=== PATIENT | male | born 1945 | race Caucasian/White ===

== ENCOUNTER 2019-04-11 05:28 | Inpatient (IN) ==
[2019-04-09 14:50] LABS: Basophils # 0.1 10*3/uL (0.0-0.2); Basophils % 0.9 % (0.0-0.8); Eosinophils # 0.3 10*3/uL (0.0-0.87); Eosinophils % 2.2 % (0.00-10.9); Hematocrit 42.2 VOL% (42.0-52.0); Hemoglobin 14.1 GM/DL (14.0-18.0); Immature Granulocytes % 0.7 %; Immature Granulocytes Absolute 0.08 #; Mean Corpuscular HGB Conc 33.4 GM/DL (32-36); Monocytes % 4.7 % (1.7-12.7); Neutrophils % 65.5 % (38.7-73.9); Platelet Count 409 T/CUMM (130-400); Red Blood Count 4.18 MC/CUMM (3.8-5.5); White Blood Count 11.3 T/CUMM (4-12)
[2019-04-09 14:57] LABS: Apearance,Urine CLEAR (Clear); Bacteria,Urine Occasional /HPF (Few); Bilirubin,Urine Negative (Negative); Blood, Urine Negative (Negative); Glucose,Urine (UA) Negative (Negative); Ketones,Urine Negative (Negative); Mucus,Urine Occasional /LPF (Occasional); Nitrite,Urine Negative (Negative); Protein,Urine Negative; RBC,Urine 2 /HPF (0-4); Urine Color Yellow (Yellow); Urine Specific Gravity 1.026 (1.001-1.035); WBC,Urine <1 /HPF (0-6)
[2019-04-09 15:27] LABS: Calcium 8.9 MG/DL (8.5-10.1); Osmolality,Calculated 287.3 MOS/KG (273-304)
[2019-04-11] MEDS ORDERED: ceFAZolin 2,000 MG in PREMIX 1 EACH IV ONE (06:00)
[2019-04-11] MEDS ORDERED: DIAZEPAM 5 MG TABLET PO ONE (06:54)
[2019-04-11] MEDS ORDERED: FAMOTIDINE 20 MG TABLET PO ONE (06:54)
[2019-04-11] MEDS ORDERED: LACTATED RINGERS 1,000 ML IV SCH (07:00)
[2019-04-11] MEDS ORDERED: BUPIVACAINE MPF 0.5% /EPI 30 ML VIAL ONE (07:02)
[2019-04-11] MEDS ORDERED: DEXAMETHASONE 4 MG/1 ML VIAL ONE ×2 (07:02→09:04)
[2019-04-11] MEDS ORDERED: LIDOCAINE 1% 5 ML VIAL ONE (07:02)
[2019-04-11] MEDS ORDERED: BACITRACIN OINT 0.9 GM PACK TOP ONE (08:14)
[2019-04-11] MEDS ORDERED: MIDAZOLAM 2 MG/2 ML VIAL ONE (09:03)
[2019-04-11] MEDS ORDERED: propofoL 200 MG/20 ML VIAL IV ONE (09:03)
[2019-04-11] MEDS ORDERED: LIDOCAINE 2% 5 ML VIAL ONE (09:03)
[2019-04-11] MEDS ORDERED: SEVOFLURANE 1 UNIT/15 MINUTE INH ONE (09:03)
[2019-04-11] MEDS ORDERED: PHENYLEPHRINE 1 MG/10 ML SYRINGE IV ONE (09:04)
[2019-04-11] MEDS ORDERED: ONDANSETRON 4 MG/2 ML VIAL ONE ×2 (09:04)
[2019-04-11] MEDS ORDERED: fentaNYL 100 MCG/2 ML VIAL ONE (09:04)
[2019-04-11] MEDS ORDERED: TUBERCULIN SKIN TEST 0.1 ML SYRINGE INTRADERM ONE (13:55)
[2019-04-11] MEDS ORDERED: ACETAMINOPHEN 325 MG TABLET PO PRN (14:02)
[2019-04-11] MEDS ORDERED: MAGNESIUM HYDROXIDE SUSP 30 ML UDCUP PO PRN (14:02)
[2019-04-11] MEDS ORDERED: ONDANSETRON 4 MG TABLET PO PRN (14:05)
[2019-04-11 15:09] LABS: Basophils # 0.1 10*3/uL (0.0-0.2); Basophils % 0.6 % (0.0-0.8); Hematocrit 41.8 VOL% (42.0-52.0); Hemoglobin 13.9 GM/DL (14.0-18.0); Immature Granulocytes % 0.9 %; Immature Granulocytes Absolute 0.13 #; Lymphocytes % 7.5 % (21.2-54.2); Mean Corpuscular HGB Conc 33.3 GM/DL (32-36); Mean Corpuscular Volume 99.8 FL (87-102); Monocytes % 1.6 % (1.7-12.7); Neutrophils % 89.4 % (38.7-73.9); Platelet Count 420 T/CUMM (130-400); Red Blood Count 4.19 MC/CUMM (3.8-5.5); Red Cell Distribution Width 12.7 % (9.3-17.3); White Blood Count 13.9 T/CUMM (4-12)
[2019-04-11 15:25] LABS: Calcium 8.9 MG/DL (8.5-10.1); Osmolality,Calculated 280.5 MOS/KG (273-304)
[2019-04-11] MEDS ORDERED: cephALEXin 500 MG CAPSULE PO SCH (16:00)
[2019-04-11] MEDS ORDERED: ceFAZolin 2,000 MG in PREMIX 1 EACH IV SCH (16:00)
[2019-04-11] MEDS: cephALEXin 500 MG CAPSULE PO SCH (21:08)
[2019-04-12] MEDS: cephALEXin 500 MG CAPSULE PO SCH (04:47)
[2019-04-12 05:33] LABS: Basophils % 0.2 % (0.0-0.8); Hematocrit 39.7 VOL% (42.0-52.0); Hemoglobin 13.3 GM/DL (14.0-18.0); Immature Granulocytes % 0.8 %; Immature Granulocytes Absolute 0.13 #; Lymphocytes # 2.4 10*3/uL (1.4-4.0); Lymphocytes % 14.5 % (21.2-54.2); Mean Corpuscular HGB Conc 33.5 GM/DL (32-36); Mean Corpuscular Volume 99.5 FL (87-102); Mean Platelet Volume 10.4 FL (9.6-12.0); Monocytes % 5.1 % (1.7-12.7); Neutrophils % 79.4 % (38.7-73.9); Platelet Count 445 T/CUMM (130-400); Red Blood Count 3.99 MC/CUMM (3.8-5.5); Red Cell Distribution Width 12.8 % (9.3-17.3); White Blood Count 16.5 T/CUMM (4-12)
[2019-04-12 05:49] LABS: Osmolality,Calculated 283.4 MOS/KG (273-304)
[2019-04-12] MEDS: FONDAPARINUX 2.5 MG/0.5 ML SYRINGE SUBCUT SCH (08:21)
[2019-04-12] MEDS: PANTOPRAZOLE 40 MG TABLET PO SCH (22:36)
[2019-04-13 05:50] LABS: Basophils # 0.1 10*3/uL (0.0-0.2); Basophils % 0.9 % (0.0-0.8); Eosinophils # 0.2 10*3/uL (0.0-0.87); Eosinophils % 1.4 % (0.00-10.9); Hematocrit 41.5 VOL% (42.0-52.0); Hemoglobin 13.6 GM/DL (14.0-18.0); Immature Granulocytes % 1.2 %; Immature Granulocytes Absolute 0.18 #; Lymphocytes # 4.6 10*3/uL (1.4-4.0); Lymphocytes % 31.2 % (21.2-54.2); Mean Corpuscular HGB Conc 32.8 GM/DL (32-36); Mean Corpuscular Volume 100.5 FL (87-102); Mean Platelet Volume 10.4 FL (9.6-12.0); Monocytes % 5.7 % (1.7-12.7); Neutrophils % 59.6 % (38.7-73.9); Platelet Count 431 T/CUMM (130-400); Red Blood Count 4.13 MC/CUMM (3.8-5.5); White Blood Count 14.8 T/CUMM (4-12)
[2019-04-13 06:29] LABS: Calcium 8.5 MG/DL (8.5-10.1); Osmolality,Calculated 290.8 MOS/KG (273-304)
[2019-04-13] MEDS: PANTOPRAZOLE 40 MG TABLET PO SCH (08:41)
[2019-04-13] MEDS: FONDAPARINUX 2.5 MG/0.5 ML SYRINGE SUBCUT SCH (08:42)
[2019-04-14 05:12] LABS: Basophils # 0.1 10*3/uL (0.0-0.2); Eosinophils # 0.4 10*3/uL (0.0-0.87); Eosinophils % 2.9 % (0.00-10.9); Hematocrit 38.8 VOL% (42.0-52.0); Hemoglobin 12.9 GM/DL (14.0-18.0); Immature Granulocytes % 1.9 %; Immature Granulocytes Absolute 0.26 #; Lymphocytes # 3.9 10*3/uL (1.4-4.0); Lymphocytes % 28.2 % (21.2-54.2); Mean Corpuscular HGB Conc 33.2 GM/DL (32-36); Mean Corpuscular Volume 99.7 FL (87-102); Monocytes % 6.1 % (1.7-12.7); NRBC # 0.02 10*3/uL; Neutrophils % 59.9 % (38.7-73.9); Platelet Count 380 T/CUMM (130-400); Red Blood Count 3.89 MC/CUMM (3.8-5.5); Red Cell Distribution Width 13.2 % (9.3-17.3); White Blood Count 13.9 T/CUMM (4-12)
[2019-04-14 05:36] LABS: Calcium 8.6 MG/DL (8.5-10.1); Osmolality,Calculated 286.3 MOS/KG (273-304)
[2019-04-14] MEDS: PANTOPRAZOLE 40 MG TABLET PO SCH (08:22)
[2019-04-14] MEDS: APIXABAN 2.5 MG TABLET PO SCH ×2 (08:22→20:06)
[2019-04-14] MEDS: ALBUTEROL 2.5 MG/3 ML NEB RESP TX PRN ×2 (16:00→20:23)
[2019-04-15 06:00] LABS: Basophils # 0.2 10*3/uL (0.0-0.2); Basophils % 1.4 % (0.0-0.8); Eosinophils # 0.4 10*3/uL (0.0-0.87); Eosinophils % 2.4 % (0.00-10.9); Hematocrit 41.5 VOL% (42.0-52.0); Hemoglobin 13.8 GM/DL (14.0-18.0); Immature Granulocytes % 2.4 %; Immature Granulocytes Absolute 0.37 #; Lymphocytes # 3.9 10*3/uL (1.4-4.0); Lymphocytes % 25.3 % (21.2-54.2); Mean Corpuscular HGB Conc 33.3 GM/DL (32-36); Mean Corpuscular Volume 99.5 FL (87-102); Mean Platelet Volume 10.3 FL (9.6-12.0); Neutrophils % 62.5 % (38.7-73.9); Platelet Count 423 T/CUMM (130-400); Red Blood Count 4.17 MC/CUMM (3.8-5.5); White Blood Count 15.5 T/CUMM (4-12)
[2019-04-15 06:37] LABS: Calcium 8.8 MG/DL (8.5-10.1); Osmolality,Calculated 277.7 MOS/KG (273-304)
[2019-04-15] MEDS: PANTOPRAZOLE 40 MG TABLET PO SCH (08:50)
[2019-04-15] MEDS: APIXABAN 2.5 MG TABLET PO SCH ×2 (08:50→20:34)
[2019-04-15] MEDS: ALBUTEROL 2.5 MG/3 ML NEB RESP TX PRN (18:12)
[2019-04-16 05:28] LABS: Basophils # 0.2 10*3/uL (0.0-0.2); Basophils % 1.2 % (0.0-0.8); Eosinophils # 0.4 10*3/uL (0.0-0.87); Eosinophils % 3.2 % (0.00-10.9); Hematocrit 39.5 VOL% (42.0-52.0); Immature Granulocytes % 2.3 %; Immature Granulocytes Absolute 0.31 #; Lymphocytes # 3.2 10*3/uL (1.4-4.0); Lymphocytes % 24.1 % (21.2-54.2); Mean Corpuscular HGB Conc 32.9 GM/DL (32-36); Mean Corpuscular Volume 100.5 FL (87-102); Mean Platelet Volume 10.5 FL (9.6-12.0); Monocytes % 6.9 % (1.7-12.7); Neutrophils % 62.3 % (38.7-73.9); Platelet Count 411 T/CUMM (130-400); Red Blood Count 3.93 MC/CUMM (3.8-5.5); Red Cell Distribution Width 13.1 % (9.3-17.3); White Blood Count 13.3 T/CUMM (4-12)
[2019-04-16 05:44] LABS: Calcium 8.7 MG/DL (8.5-10.1); Osmolality,Calculated 283.4 MOS/KG (273-304)
[2019-04-16 07:35] VITALS: BP 123/67
[2019-04-16] MEDS: PANTOPRAZOLE 40 MG TABLET PO SCH (08:52)
[2019-04-16] MEDS: APIXABAN 2.5 MG TABLET PO SCH (08:52)
== END 2019-04-16 12:05 | disposition swing bed (61) | DRG 494 ==
LOC: N.OR 05:28 → N.SDSINP 05:29 → N.3E 13:38
PROVIDERS: ADMIT Orthopaedic Surgery; ATTEND Orthopaedic Surgery

== ENCOUNTER 2020-11-03 22:12 | Inpatient (IN) ==
[2020-11-03] MEDS ORDERED: SODIUM CHLORIDE 0.9% 500 ML IV STA ×2 (22:56→23:41)
[2020-11-03 23:12] LABS: Basophils # 0.1 10*3/uL (0.0-0.2); Eosinophils # 0.1 10*3/uL (0.0-0.87); Eosinophils % 0.9 % (0.00-10.9); Hematocrit 38.5 VOL% (42.0-52.0); Hemoglobin 12.8 GM/DL (14.0-18.0); Immature Granulocytes % 1.4 %; Immature Granulocytes Absolute 0.19 #; Lymphocytes # 0.7 10*3/uL (1.4-4.0); Lymphocytes % 5.3 % (21.2-54.2); Mean Corpuscular HGB Conc 33.2 GM/DL (32-36); Mean Corpuscular Volume 102.7 FL (87-102); Mean Platelet Volume 9.8 FL (9.6-12.0); Monocytes % 7.2 % (1.7-12.7); Neutrophils % 84.2 % (38.7-73.9); Platelet Count 577 T/CUMM (130-400); Red Blood Count 3.75 MC/CUMM (3.8-5.5); Red Cell Distribution Width 13.6 % (9.3-17.3); White Blood Count 13.7 T/CUMM (4-12)
[2020-11-03 23:27] LABS: Alanine Aminotransferase 53 U/L (16-61); Albumin 3.9 G/DL (3.4-5.0); Alkaline Phosphatase 49 U/L (45-117); Amylase 37 U/L (25-115); Aspartate Amino Transferase 50 U/L (0-37); Blood Urea Nitrogen 16 MG/DL (7-18); Calcium 8.9 MG/DL (8.5-10.1); Carbon Dioxide 24 MMOL/L (21-32); Estimated Glom Filtration Rate 97 ML/MIN; Glucose 115 MG/DL (74-106); Osmolality,Calculated 276.7 MOS/KG (273-304); Potassium 4.2 MMOL/L (3.5-5.1); Sodium 138 MMOL/L (136-145); Total Protein 7.3 G/DL (6.4-8.2)
[2020-11-04 01:29] LABS: Bilirubin,Urine Negative (Negative); Blood, Urine Negative (Negative); Glucose,Urine (UA) Negative (Negative); Ketones,Urine 5 mg/dL (Negative); Mucus,Urine Occasional /LPF (Occasional); Nitrite,Urine Negative (Negative); Protein,Urine Negative; RBC,Urine 3 /HPF (0-4); Urine Appearance CLEAR (Clear); Urine Color Yellow (Yellow); Urine Urobilinogen < 2.0 EU/DL (0.2-1.0)
[2020-11-04] MEDS ORDERED: SODIUM CHLORIDE 0.9% 500 ML IV STA (02:58)
[2020-11-04] MEDS ORDERED: ENOXAPARIN 100 MG/ML SYRINGE SUBCUT STA (03:31)
[2020-11-04 06:05] LABS: Ferritin 1331.8 ng/ml (26-388)
[2020-11-04] MEDS ORDERED: diphenhydrAMINE CAP 25 MG CAPSULE PO PRN (06:11)
[2020-11-04] MEDS ORDERED: GLUCAGON 1 MG VIAL IM PRN (06:11)
[2020-11-04] MEDS ORDERED: MORPHINE 2 MG/1 ML SYRINGE IV PRN (06:11)
[2020-11-04] MEDS ORDERED: ACETAMINOPHEN 325 MG TABLET PO PRN (06:11)
[2020-11-04] MEDS ORDERED: DEXTROSE 50% 25 GM/50 ML VIAL IV PRN (06:11)
[2020-11-04] MEDS ORDERED: ONDANSETRON 4 MG/2 ML VIAL IV PRN (06:11)
[2020-11-04] MEDS ORDERED: hydrALAZINE 20 MG/1 ML VIAL IV PRN (06:11)
[2020-11-04] MEDS: SODIUM CHLORIDE 0.9% 1,000 ML IV SCH ×2 (06:48→16:09)
[2020-11-04] MEDS: PIPERACILLIN/TAZOBACTAM 3,375 MG in SODIUM CHLORIDE 0.9% 100 ML IV SCH ×3 (06:48→22:35)
[2020-11-04] MEDS ORDERED: ALBUTEROL/IPRATROPIUM 3 ML NEB RESP TX SCH (07:00)
[2020-11-04] MEDS ORDERED: MELATONIN 3 MG TABLET PO PRN (07:06)
[2020-11-04] MEDS: DEXAMETHASONE 4 MG/1 ML VIAL IV SCH (08:23)
[2020-11-04] MEDS: FAMOTIDINE 20 MG TABLET PO SCH ×2 (08:24→22:36)
[2020-11-04] MEDS: ZINC GLUCONATE 50 MG TABLET PO SCH (08:24)
[2020-11-04] MEDS: CHOLECALCIFEROL 1,000 UNIT TABLET PO SCH (08:24)
[2020-11-04] MEDS: CETIRIZINE 10 MG TABLET PO SCH (08:24)
[2020-11-04] MEDS: ASCORBIC ACID 500 MG TABLET PO SCH ×2 (08:24→22:36)
[2020-11-04] MEDS ORDERED: IVERMECTIN 3 MG TABLET PO SCH (14:00)
[2020-11-04] MEDS: ENOXAPARIN 40 MG/0.4 ML SYRINGE SUBCUT SCH (22:36)
[2020-11-05 05:08] LABS: Basophils % 0.5 % (0.0-0.8); Eosinophils % 0.2 % (0.00-10.9); Hematocrit 35.2 VOL% (42.0-52.0); Hemoglobin 11.5 GM/DL (14.0-18.0); Immature Granulocytes % 1.1 %; Immature Granulocytes Absolute 0.07 #; Lymphocytes # 2.1 10*3/uL (1.4-4.0); Lymphocytes % 32.9 % (21.2-54.2); Mean Corpuscular HGB Conc 32.7 GM/DL (32-36); Mean Corpuscular Volume 102.9 FL (87-102); Mean Platelet Volume 9.8 FL (9.6-12.0); Monocytes % 9.1 % (1.7-12.7); Neutrophils % 56.2 % (38.7-73.9); Platelet Count 467 T/CUMM (130-400); Red Blood Count 3.42 MC/CUMM (3.8-5.5); Red Cell Distribution Width 13.7 % (9.3-17.3); White Blood Count 6.3 T/CUMM (4-12)
[2020-11-05 05:41] LABS: Ferritin 1489.3 ng/ml (26-388)
[2020-11-05 05:46] LABS: Albumin 3.2 G/DL (3.4-5.0); Bilirubin,Total 0.5 MG/DL (0.20-1.00); Calcium 8.3 MG/DL (8.5-10.1); Osmolality,Calculated 285.3 MOS/KG (273-304); Total Protein 6.4 G/DL (6.4-8.2)
[2020-11-05] MEDS: PIPERACILLIN/TAZOBACTAM 3,375 MG in SODIUM CHLORIDE 0.9% 100 ML IV SCH ×3 (06:36→22:40)
[2020-11-05] MEDS: FAMOTIDINE 20 MG TABLET PO SCH ×2 (09:35→20:43)
[2020-11-05] MEDS: ASCORBIC ACID 500 MG TABLET PO SCH ×2 (09:39→20:44)
[2020-11-05] MEDS: IVERMECTIN 3 MG TABLET PO SCH (09:39)
[2020-11-05] MEDS: CHOLECALCIFEROL 1,000 UNIT TABLET PO SCH (09:40)
[2020-11-05] MEDS: ZINC GLUCONATE 50 MG TABLET PO SCH (09:40)
[2020-11-05] MEDS: AZITHROMYCIN 250 MG TABLET PO SCH (09:41)
[2020-11-05] MEDS: CETIRIZINE 10 MG TABLET PO SCH (09:41)
[2020-11-05] MEDS: DEXAMETHASONE 4 MG/1 ML VIAL IV SCH (09:44)
[2020-11-05] MEDS: SODIUM CHLORIDE 0.9% 1,000 ML IV SCH ×3 (18:47→23:46)
[2020-11-05] MEDS: ENOXAPARIN 40 MG/0.4 ML SYRINGE SUBCUT SCH (20:43)
[2020-11-06 05:23] LABS: Basophils % 0.5 % (0.0-0.8); Hematocrit 38.5 VOL% (42.0-52.0); Hemoglobin 12.5 GM/DL (14.0-18.0); Immature Granulocytes % 1.2 %; Immature Granulocytes Absolute 0.09 #; Lymphocytes # 2.5 10*3/uL (1.4-4.0); Lymphocytes % 34.4 % (21.2-54.2); Mean Corpuscular HGB Conc 32.5 GM/DL (32-36); Mean Corpuscular Volume 103.5 FL (87-102); Mean Platelet Volume 10.1 FL (9.6-12.0); Monocytes % 7.1 % (1.7-12.7); Neutrophils % 56.8 % (38.7-73.9); Platelet Count 481 T/CUMM (130-400); Red Blood Count 3.72 MC/CUMM (3.8-5.5); Red Cell Distribution Width 13.6 % (9.3-17.3); White Blood Count 7.3 T/CUMM (4-12)
[2020-11-06 05:46] LABS: Osmolality,Calculated 280.5 MOS/KG (273-304)
[2020-11-06] MEDS: SODIUM CHLORIDE 0.9% 1,000 ML IV SCH (05:48)
[2020-11-06] MEDS: PIPERACILLIN/TAZOBACTAM 3,375 MG in SODIUM CHLORIDE 0.9% 100 ML IV SCH ×3 (05:49→21:30)
[2020-11-06 05:53] LABS: Ferritin 1547.3 ng/ml (26-388)
[2020-11-06] MEDS: AZITHROMYCIN 250 MG TABLET PO SCH (09:22)
[2020-11-06] MEDS: CHOLECALCIFEROL 1,000 UNIT TABLET PO SCH (09:23)
[2020-11-06] MEDS: CETIRIZINE 10 MG TABLET PO SCH (09:23)
[2020-11-06] MEDS: ASCORBIC ACID 500 MG TABLET PO SCH ×2 (09:23→21:12)
[2020-11-06] MEDS: ZINC GLUCONATE 50 MG TABLET PO SCH (09:23)
[2020-11-06] MEDS: FAMOTIDINE 20 MG TABLET PO SCH ×2 (09:24→21:12)
[2020-11-06] MEDS: POLYETHYLENE GLYCOL POWDER 17 GM PACK PO SCH (09:24)
[2020-11-06] MEDS: IVERMECTIN 3 MG TABLET PO SCH (09:24)
[2020-11-06] MEDS: DEXAMETHASONE 4 MG/1 ML VIAL IV SCH (09:24)
[2020-11-06] MEDS: ENOXAPARIN 40 MG/0.4 ML SYRINGE SUBCUT SCH (21:12)
[2020-11-07 04:57] LABS: Basophils % 0.4 % (0.0-0.8); Eosinophils % 0.1 % (0.00-10.9); Hematocrit 38.1 VOL% (42.0-52.0); Hemoglobin 12.3 GM/DL (14.0-18.0); Immature Granulocytes % 1.4 %; Lymphocytes # 1.9 10*3/uL (1.4-4.0); Mean Corpuscular HGB Conc 32.3 GM/DL (32-36); Mean Corpuscular Volume 103.8 FL (87-102); Mean Platelet Volume 9.9 FL (9.6-12.0); Monocytes % 6.9 % (1.7-12.7); Neutrophils % 65.2 % (38.7-73.9); Platelet Count 474 T/CUMM (130-400); Red Blood Count 3.67 MC/CUMM (3.8-5.5); Red Cell Distribution Width 13.5 % (9.3-17.3); White Blood Count 7.2 T/CUMM (4-12)
[2020-11-07 05:19] LABS: Ferritin 1558.2 ng/ml (26-388)
[2020-11-07 05:20] LABS: Calcium 8.4 MG/DL (8.5-10.1); Osmolality,Calculated 281.3 MOS/KG (273-304); Potassium 4.2 MMOL/L (3.5-5.1)
[2020-11-07] MEDS: PIPERACILLIN/TAZOBACTAM 3,375 MG in SODIUM CHLORIDE 0.9% 100 ML IV SCH (05:42)
[2020-11-07] MEDS: DEXAMETHASONE 4 MG/1 ML VIAL IV SCH (09:12)
[2020-11-07] MEDS: ASCORBIC ACID 500 MG TABLET PO SCH ×2 (09:13→21:00)
[2020-11-07] MEDS: FAMOTIDINE 20 MG TABLET PO SCH ×2 (09:13→21:00)
[2020-11-07] MEDS: ZINC GLUCONATE 50 MG TABLET PO SCH (09:13)
[2020-11-07] MEDS: AZITHROMYCIN 250 MG TABLET PO SCH (09:13)
[2020-11-07] MEDS: CHOLECALCIFEROL 1,000 UNIT TABLET PO SCH (09:13)
[2020-11-07] MEDS: POLYETHYLENE GLYCOL POWDER 17 GM PACK PO SCH (09:13)
[2020-11-07] MEDS: CETIRIZINE 10 MG TABLET PO SCH (09:13)
[2020-11-07] MEDS: IVERMECTIN 3 MG TABLET PO SCH (09:13)
[2020-11-07] MEDS: cefTRIAXone 1,000 MG in SODIUM CHLORIDE 0.9% 100 ML IV SCH (10:02)
[2020-11-07] MEDS: ENOXAPARIN 40 MG/0.4 ML SYRINGE SUBCUT SCH (21:00)
[2020-11-08 05:32] LABS: Basophils % 0.6 % (0.0-0.8); Eosinophils % 0.1 % (0.00-10.9); Hematocrit 37.8 VOL% (42.0-52.0); Hemoglobin 12.6 GM/DL (14.0-18.0); Immature Granulocytes % 2.1 %; Immature Granulocytes Absolute 0.15 #; Lymphocytes # 1.7 10*3/uL (1.4-4.0); Lymphocytes % 23.6 % (21.2-54.2); Mean Corpuscular HGB Conc 33.3 GM/DL (32-36); Mean Corpuscular Volume 101.6 FL (87-102); Mean Platelet Volume 9.8 FL (9.6-12.0); Neutrophils % 65.6 % (38.7-73.9); Platelet Count 458 T/CUMM (130-400); Red Blood Count 3.72 MC/CUMM (3.8-5.5); Red Cell Distribution Width 13.7 % (9.3-17.3); White Blood Count 7.1 T/CUMM (4-12)
[2020-11-08 06:03] LABS: Ferritin 1680.9 ng/ml (26-388)
[2020-11-08 06:08] LABS: Calcium 8.4 MG/DL (8.5-10.1); Osmolality,Calculated 280.5 MOS/KG (273-304); Potassium 3.8 MMOL/L (3.5-5.1)
[2020-11-08] MEDS: cefTRIAXone 1,000 MG in SODIUM CHLORIDE 0.9% 100 ML IV SCH (09:35)
[2020-11-08] MEDS: DEXAMETHASONE 4 MG/1 ML VIAL IV SCH (09:35)
[2020-11-08] MEDS: AZITHROMYCIN 250 MG TABLET PO SCH (09:37)
[2020-11-08] MEDS: CETIRIZINE 10 MG TABLET PO SCH (09:37)
[2020-11-08] MEDS: CHOLECALCIFEROL 1,000 UNIT TABLET PO SCH (09:37)
[2020-11-08] MEDS: ZINC GLUCONATE 50 MG TABLET PO SCH (09:37)
[2020-11-08] MEDS: ASCORBIC ACID 500 MG TABLET PO SCH ×2 (09:37→21:19)
[2020-11-08] MEDS: FAMOTIDINE 20 MG TABLET PO SCH ×2 (09:37→21:19)
[2020-11-08] MEDS: POLYETHYLENE GLYCOL POWDER 17 GM PACK PO SCH (09:37)
[2020-11-08] MEDS: IVERMECTIN 3 MG TABLET PO SCH (09:38)
[2020-11-08] MEDS: ENOXAPARIN 40 MG/0.4 ML SYRINGE SUBCUT SCH (21:19)
[2020-11-09 06:24] LABS: Basophils % 0.5 % (0.0-0.8); Eosinophils % 0.1 % (0.00-10.9); Hematocrit 39.3 VOL% (42.0-52.0); Immature Granulocytes % 3.2 %; Immature Granulocytes Absolute 0.25 #; Lymphocytes # 1.7 10*3/uL (1.4-4.0); Lymphocytes % 21.4 % (21.2-54.2); Mean Corpuscular HGB Conc 33.1 GM/DL (32-36); Mean Corpuscular Volume 99.2 FL (87-102); Mean Platelet Volume 9.7 FL (9.6-12.0); Monocytes % 6.8 % (1.7-12.7); Platelet Count 471 T/CUMM (130-400); Red Blood Count 3.96 MC/CUMM (3.8-5.5); Red Cell Distribution Width 13.6 % (9.3-17.3); White Blood Count 7.9 T/CUMM (4-12)
[2020-11-09 06:47] LABS: Calcium 8.6 MG/DL (8.5-10.1); Osmolality,Calculated 271.2 MOS/KG (273-304); Potassium 3.6 MMOL/L (3.5-5.1)
[2020-11-09] MEDS: POLYETHYLENE GLYCOL POWDER 17 GM PACK PO SCH (08:20)
[2020-11-09] MEDS: cefTRIAXone 1,000 MG in SODIUM CHLORIDE 0.9% 100 ML IV SCH (08:20)
[2020-11-09] MEDS: ASCORBIC ACID 500 MG TABLET PO SCH (08:21)
[2020-11-09] MEDS: CHOLECALCIFEROL 1,000 UNIT TABLET PO SCH (08:21)
[2020-11-09] MEDS: FAMOTIDINE 20 MG TABLET PO SCH (08:21)
[2020-11-09] MEDS: CETIRIZINE 10 MG TABLET PO SCH (08:21)
[2020-11-09] MEDS: ZINC GLUCONATE 50 MG TABLET PO SCH (08:21)
[2020-11-09] MEDS: DEXAMETHASONE 4 MG/1 ML VIAL IV SCH (08:22)
[2020-11-09 12:36] VITALS: BP 132/72
== END 2020-11-09 17:49 | disposition swing bed (61) | DRG 177 ==
LOC: EDBD → EDUNIT# → N.ED 22:12 → SUATTDRO 11-04 03:11 → N.EDINP 11-04 03:11 → N.5E 11-04 04:45 → N.ICU 11-04 07:46 → N.2E 11-04 15:52
PROVIDERS: ADMIT Hospitalist; ATTEND Internal Medicine

== ENCOUNTER 2020-11-15 07:59 | Inpatient (IN) ==
[2020-11-15 08:29] LABS: ABG Base Excess -2.5 MMOL/L (-2.5-2.5); ABG HCO3 21.8 MMOL/L (20-26); ABG Oxygen Saturation 71.5 % (95-100); ABG PCO2 27.2 MM HG (35-48); ABG PH 7.467 (7.35-7.45); ABG TCO2 16.8 MMOL/L (23-27)
[2020-11-15 08:32] LABS: ABG PO2 39.5 MM HG (80-95)
[2020-11-15 09:00] LABS: Basophils # 0.2 10*3/uL (0.0-0.2); Basophils % 0.6 % (0.0-0.8); Hematocrit 46.1 VOL% (42.0-52.0); Hemoglobin 15.1 GM/DL (14.0-18.0); Lymphocytes # 1.1 10*3/uL (1.4-4.0); Lymphocytes % 4.4 % (21.2-54.2); Mean Corpuscular HGB Conc 32.8 GM/DL (32-36); Mean Corpuscular Volume 101.1 FL (87-102); Mean Platelet Volume 11.1 FL (9.6-12.0); Monocytes % 3.1 % (1.7-12.7); Neutrophils % 87.9 % (38.7-73.9); Platelet Count 778 T/CUMM (130-400); Red Blood Count 4.56 MC/CUMM (3.8-5.5); Red Cell Distribution Width 13.7 % (9.3-17.3); White Blood Count 25.2 T/CUMM (4-12)
[2020-11-15] MEDS ORDERED: ONDANSETRON 4 MG/2 ML VIAL ONE (09:03)
[2020-11-15] MEDS ORDERED: ONDANSETRON 4 MG/2 ML VIAL IV STA (09:05)
[2020-11-15] MEDS ORDERED: DEXAMETHASONE 4 MG/1 ML VIAL IV STA (09:08)
[2020-11-15] MEDS ORDERED: PIPERACILLIN/TAZOBACTAM 3,375 MG in SODIUM CHLORIDE 0.9% 100 ML IV STA (09:08)
[2020-11-15 09:26] LABS: Bilirubin,Total 1.4 MG/DL (0.20-1.00); Calcium 9.5 MG/DL (8.5-10.1); Osmolality,Calculated 283.8 MOS/KG (273-304); Potassium 5.3 MMOL/L (3.5-5.1); Total Protein 8.7 G/DL (6.4-8.2)
[2020-11-15 09:27] LABS: Band Neutrophils 2 % (0-10); Lymphocytes 4 % (20-55); Segmented Neutrophils 91 % (50-85); Total Cells Counted 100
[2020-11-15 09:28] LABS: Hypochromasia 1+
[2020-11-15 09:29] LABS: Microcytosis 1+; Platelet Estimate Increased
[2020-11-15 09:37] LABS: PT Patient Result 11.7 SECS (10.5-12.0); Partial Thromboplastin Time 26.2 SECS (23.9-33.8)
[2020-11-15 10:32] LABS: ABG Base Excess -1.7 MMOL/L (-2.5-2.5); ABG HCO3 22.8 MMOL/L (20-26); ABG Oxygen Saturation 90.3 % (95-100); ABG PCO2 37.2 MM HG (35-48); ABG PH 7.395 (7.35-7.45); ABG PO2 65.7 MM HG (80-95); ABG TCO2 19.6 MMOL/L (23-27)
[2020-11-15] MEDS ORDERED: ONDANSETRON 4 MG/2 ML VIAL IV PRN (10:51)
[2020-11-15] MEDS ORDERED: ALBUTEROL 2.5 MG/3 ML NEB RESP TX PRN ×2 (10:51→18:40)
[2020-11-15] MEDS ORDERED: BISACODYL 10 MG SUPP RECTAL PRN (10:55)
[2020-11-15] MEDS ORDERED: guaiFENesin 200 MG/10 ML UDCUP PO PRN (10:55)
[2020-11-15] MEDS ORDERED: ACETAMINOPHEN 325 MG TABLET PO PRN (10:55)
[2020-11-15] MEDS ORDERED: MAGNESIUM HYDROXIDE SUSP 30 ML UDCUP PO PRN (10:55)
[2020-11-15] MEDS ORDERED: ALUMINUM/MAGNES/SIMETH MAX STR 30 ML UDCUP PO PRN (10:55)
[2020-11-15] MEDS ORDERED: DEXTROSE 50% 25 GM/50 ML SYRINGE IV PRN (10:55)
[2020-11-15] MEDS ORDERED: ZALEPLON 5 MG CAPSULE PO PRN (10:55)
[2020-11-15] MEDS: LACTATED RINGERS 1,000 ML IV SCH (11:30)
[2020-11-15] MEDS: methylPREDNISolone SOD SUC 40 MG/1 ML VIAL IV SCH ×2 (11:30→19:14)
[2020-11-15] MEDS: ENOXAPARIN 40 MG/0.4 ML SYRINGE SUBCUT SCH (11:30)
[2020-11-15] MEDS: FUROSEMIDE 40 MG/4 ML VIAL IV SCH (15:57)
[2020-11-15] MEDS: BENZONATATE 100 MG CAPSULE PO SCH ×2 (15:57→21:05)
[2020-11-15] MEDS: LEVOFLOXACIN INJ 500 MG/100 ML PREMIX IV SCH (17:35)
[2020-11-15] MEDS: ZINC OXIDE PASTE 113 GM TUBE TOP SCH (21:05)
[2020-11-15] MEDS: ASCORBIC ACID 500 MG TABLET PO SCH (21:06)
[2020-11-16] MEDS: LACTATED RINGERS 1,000 ML IV SCH ×2 (01:16→14:59)
[2020-11-16] MEDS: methylPREDNISolone SOD SUC 40 MG/1 ML VIAL IV SCH ×3 (03:46→17:44)
[2020-11-16 04:08] LABS: Basophils # 0.1 10*3/uL (0.0-0.2); Basophils % 0.7 % (0.0-0.8); Hematocrit 41.5 VOL% (42.0-52.0); Hemoglobin 13.7 GM/DL (14.0-18.0); Immature Granulocytes % 3.8 %; Immature Granulocytes Absolute 0.67 #; Lymphocytes # 0.8 10*3/uL (1.4-4.0); Lymphocytes % 4.7 % (21.2-54.2); Mean Platelet Volume 9.8 FL (9.6-12.0); Monocytes % 2.6 % (1.7-12.7); NRBC # 0.02 10*3/uL; Neutrophils % 88.2 % (38.7-73.9); Platelet Count 644 T/CUMM (130-400); Red Blood Count 4.07 MC/CUMM (3.8-5.5); Red Cell Distribution Width 13.5 % (9.3-17.3); White Blood Count 17.9 T/CUMM (4-12)
[2020-11-16 04:30] LABS: Band Neutrophils 2 % (0-10); Hypochromasia Slight; Lymphocytes 3 % (20-55); Microcytosis 1+; Platelet Estimate Adequate; Segmented Neutrophils 94 % (50-85); Total Cells Counted 100
[2020-11-16 04:34] LABS: Calcium 9.1 MG/DL (8.5-10.1); High Sensitive Troponin I* 19.6 ng/L (0-78); Osmolality,Calculated 288.7 MOS/KG (273-304); Potassium 5.3 MMOL/L (3.5-5.1)
[2020-11-16] MEDS: CHOLECALCIFEROL 1,000 UNIT TABLET PO SCH (08:10)
[2020-11-16] MEDS: PANTOPRAZOLE 40 MG TABLET PO SCH (08:11)
[2020-11-16] MEDS: ZINC OXIDE PASTE 113 GM TUBE TOP SCH ×2 (08:11→20:32)
[2020-11-16] MEDS: ZINC GLUCONATE 50 MG TABLET PO SCH (08:11)
[2020-11-16] MEDS: BENZONATATE 100 MG CAPSULE PO SCH ×3 (08:11→20:32)
[2020-11-16] MEDS: ASCORBIC ACID 500 MG TABLET PO SCH ×2 (08:11→20:32)
[2020-11-16] MEDS: CETIRIZINE 10 MG TABLET PO SCH (08:11)
[2020-11-16] MEDS: FUROSEMIDE 40 MG/4 ML VIAL IV SCH ×2 (08:36→15:30)
[2020-11-16] MEDS: ENOXAPARIN 40 MG/0.4 ML SYRINGE SUBCUT SCH (11:40)
[2020-11-16] MEDS: ALPRAZolam 0.25 MG TABLET PO SCH ×3 (11:43→20:32)
[2020-11-16] MEDS ORDERED: LORazepam 2 MG/1 ML VIAL IV ONE (12:52)
[2020-11-16] MEDS: cefTRIAXone 1,000 MG in SODIUM CHLORIDE 0.9% 100 ML IV SCH (15:10)
[2020-11-16] MEDS: LEVOFLOXACIN INJ 500 MG/100 ML PREMIX IV SCH (16:00)
[2020-11-16] MEDS ORDERED: OLANZapine 10 MG VIAL IM PRN (16:54)
[2020-11-16 17:06] LABS: ABG Base Excess 3.9 MMOL/L (-2.5-2.5); ABG HCO3 27.5 MMOL/L (20-26); ABG PCO2 38.1 MM HG (35-48); ABG PH 7.476 (7.35-7.45); ABG TCO2 28.7 MMOL/L (23-27)
[2020-11-16] MEDS: HALOPERIDOL 5 MG/ML AMP IM PRN (18:00)
[2020-11-16] MEDS ORDERED: DEXMEDETOMIDINE 200 MCG in SODIUM CHLORIDE 0.9% 48 ML IV PRN (20:23)
[2020-11-17] MEDS: methylPREDNISolone SOD SUC 40 MG/1 ML VIAL IV SCH ×4 (00:21→17:54)
[2020-11-17] MEDS: DEXMEDETOMIDINE 400 MCG in SODIUM CHLORIDE 0.9% 96 ML IV PRN (02:19)
[2020-11-17 03:19] LABS: Basophils # 0.1 10*3/uL (0.0-0.2); Basophils % 0.5 % (0.0-0.8); Hematocrit 37.7 VOL% (42.0-52.0); Immature Granulocytes % 4.3 %; Lymphocytes # 0.6 10*3/uL (1.4-4.0); Lymphocytes % 3.4 % (21.2-54.2); Mean Corpuscular HGB Conc 34.5 GM/DL (32-36); Mean Corpuscular Volume 97.9 FL (87-102); Mean Platelet Volume 10.3 FL (9.6-12.0); Monocytes % 1.6 % (1.7-12.7); NRBC # 0.02 10*3/uL; Neutrophils % 90.2 % (38.7-73.9); Platelet Count 602 T/CUMM (130-400); Red Blood Count 3.85 MC/CUMM (3.8-5.5); Red Cell Distribution Width 13.2 % (9.3-17.3); White Blood Count 18.6 T/CUMM (4-12)
[2020-11-17 03:40] LABS: Lymphocytes 7 % (20-55); Platelet Estimate Adequate; Segmented Neutrophils 89 % (50-85); Total Cells Counted 100
[2020-11-17 03:41] LABS: Hypochromasia Slight; Microcytosis Slight
[2020-11-17] MEDS: LACTATED RINGERS 1,000 ML IV SCH ×2 (03:44→20:48)
[2020-11-17 04:21] LABS: Calcium 8.6 MG/DL (8.5-10.1); Osmolality,Calculated 288.1 MOS/KG (273-304); Potassium 4.9 MMOL/L (3.5-5.1)
[2020-11-17] MEDS: FUROSEMIDE 40 MG/4 ML VIAL IV SCH ×2 (09:08→10:18)
[2020-11-17] MEDS: BENZONATATE 100 MG CAPSULE PO SCH ×3 (09:49→20:45)
[2020-11-17] MEDS: CETIRIZINE 10 MG TABLET PO SCH (09:50)
[2020-11-17] MEDS: ZINC GLUCONATE 50 MG TABLET PO SCH (09:50)
[2020-11-17] MEDS: ALPRAZolam 0.25 MG TABLET PO SCH ×3 (09:50→20:45)
[2020-11-17] MEDS: CHOLECALCIFEROL 1,000 UNIT TABLET PO SCH (09:50)
[2020-11-17] MEDS: PANTOPRAZOLE 40 MG TABLET PO SCH (09:50)
[2020-11-17] MEDS: ASCORBIC ACID 500 MG TABLET PO SCH ×2 (09:50→20:45)
[2020-11-17] MEDS: ZINC OXIDE PASTE 113 GM TUBE TOP SCH ×2 (10:00→20:48)
[2020-11-17] MEDS: ENOXAPARIN 40 MG/0.4 ML SYRINGE SUBCUT SCH (13:43)
[2020-11-17] MEDS: cefTRIAXone 1,000 MG in SODIUM CHLORIDE 0.9% 100 ML IV SCH (13:46)
[2020-11-17] MEDS: LEVOFLOXACIN INJ 500 MG/100 ML PREMIX IV SCH (16:53)
[2020-11-18] MEDS: methylPREDNISolone SOD SUC 40 MG/1 ML VIAL IV SCH ×5 (00:18→23:35)
[2020-11-18] MEDS: DEXMEDETOMIDINE 400 MCG in SODIUM CHLORIDE 0.9% 96 ML IV PRN (00:53)
[2020-11-18] MEDS: LACTATED RINGERS 1,000 ML IV SCH (03:29)
[2020-11-18 07:37] LABS: Basophils # 0.1 10*3/uL (0.0-0.2); Basophils % 0.4 % (0.0-0.8); Hematocrit 40.4 VOL% (42.0-52.0); Hemoglobin 13.2 GM/DL (14.0-18.0); Immature Granulocytes % 4.2 %; Immature Granulocytes Absolute 0.92 #; Lymphocytes # 0.9 10*3/uL (1.4-4.0); Mean Corpuscular HGB Conc 32.7 GM/DL (32-36); Mean Corpuscular Volume 100.5 FL (87-102); Mean Platelet Volume 10.5 FL (9.6-12.0); Monocytes % 1.7 % (1.7-12.7); Neutrophils % 89.7 % (38.7-73.9); Platelet Count 610 T/CUMM (130-400); Red Blood Count 4.02 MC/CUMM (3.8-5.5); Red Cell Distribution Width 13.1 % (9.3-17.3)
[2020-11-18 07:50] LABS: Calcium 9.1 MG/DL (8.5-10.1); Potassium 4.6 MMOL/L (3.5-5.1)
[2020-11-18 07:56] LABS: Band Neutrophils 1 % (0-10); Hypochromasia Slight; Lymphocytes 1 % (20-55); Microcytosis 1+; Platelet Estimate Increased; Segmented Neutrophils 97 % (50-85); Total Cells Counted 100
[2020-11-18] MEDS: ZINC OXIDE PASTE 113 GM TUBE TOP SCH ×2 (08:20→20:15)
[2020-11-18] MEDS: ASCORBIC ACID 500 MG TABLET PO SCH ×2 (08:20→20:15)
[2020-11-18] MEDS: CHOLECALCIFEROL 1,000 UNIT TABLET PO SCH (08:20)
[2020-11-18] MEDS: CETIRIZINE 10 MG TABLET PO SCH (08:20)
[2020-11-18] MEDS: BENZONATATE 100 MG CAPSULE PO SCH ×3 (08:20→20:15)
[2020-11-18] MEDS: PANTOPRAZOLE 40 MG TABLET PO SCH (08:20)
[2020-11-18] MEDS: ZINC GLUCONATE 50 MG TABLET PO SCH (08:20)
[2020-11-18] MEDS: ALPRAZolam 0.25 MG TABLET PO SCH ×3 (08:20→20:15)
[2020-11-18] MEDS: FUROSEMIDE 40 MG/4 ML VIAL IV SCH ×2 (08:21→10:17)
[2020-11-18] MEDS: LEVOFLOXACIN 500 MG TABLET PO SCH (09:52)
[2020-11-18] MEDS: ENOXAPARIN 40 MG/0.4 ML SYRINGE SUBCUT SCH (10:30)
[2020-11-18] MEDS: cefTRIAXone 1,000 MG in SODIUM CHLORIDE 0.9% 100 ML IV SCH (15:33)
[2020-11-19 05:41] LABS: Basophils # 0.1 10*3/uL (0.0-0.2); Basophils % 0.3 % (0.0-0.8); Hematocrit 38.8 VOL% (42.0-52.0); Hemoglobin 12.7 GM/DL (14.0-18.0); Immature Granulocytes % 3.9 %; Immature Granulocytes Absolute 0.84 #; Lymphocytes # 0.8 10*3/uL (1.4-4.0); Lymphocytes % 3.6 % (21.2-54.2); Mean Corpuscular HGB Conc 32.7 GM/DL (32-36); Mean Corpuscular Volume 100.3 FL (87-102); Mean Platelet Volume 10.6 FL (9.6-12.0); Neutrophils % 90.2 % (38.7-73.9); Platelet Count 594 T/CUMM (130-400); Red Blood Count 3.87 MC/CUMM (3.8-5.5); Red Cell Distribution Width 13.2 % (9.3-17.3); White Blood Count 21.5 T/CUMM (4-12)
[2020-11-19 05:57] LABS: Calcium 8.8 MG/DL (8.5-10.1); Osmolality,Calculated 283.2 MOS/KG (273-304); Potassium 4.4 MMOL/L (3.5-5.1)
[2020-11-19] MEDS: methylPREDNISolone SOD SUC 40 MG/1 ML VIAL IV SCH ×3 (06:03→22:35)
[2020-11-19 06:25] LABS: Band Neutrophils 8 % (0-10); Lymphocytes 3 % (20-55); Metamyelocytes 5 %; Platelet Estimate Increased; Segmented Neutrophils 82 % (50-85); Total Cells Counted 100
[2020-11-19 06:26] LABS: Anisocytosis 1+; Giant Platelets Few
[2020-11-19 06:27] LABS: Macrocytosis Slight
[2020-11-19] MEDS: FUROSEMIDE 40 MG/4 ML VIAL IV SCH (11:33)
[2020-11-19] MEDS: LEVOFLOXACIN 500 MG TABLET PO SCH (11:37)
[2020-11-19] MEDS: PANTOPRAZOLE 40 MG TABLET PO SCH (11:37)
[2020-11-19] MEDS: ASCORBIC ACID 500 MG TABLET PO SCH ×2 (11:38→22:43)
[2020-11-19] MEDS: ALPRAZolam 0.25 MG TABLET PO SCH ×3 (11:38→22:44)
[2020-11-19] MEDS: CHOLECALCIFEROL 1,000 UNIT TABLET PO SCH (11:38)
[2020-11-19] MEDS: ZINC GLUCONATE 50 MG TABLET PO SCH (11:38)
[2020-11-19] MEDS: BENZONATATE 100 MG CAPSULE PO SCH ×3 (11:38→22:43)
[2020-11-19] MEDS: CETIRIZINE 10 MG TABLET PO SCH (11:39)
[2020-11-19] MEDS: ZINC OXIDE PASTE 113 GM TUBE TOP SCH ×2 (11:46→20:30)
[2020-11-19] MEDS: cefTRIAXone 1,000 MG in SODIUM CHLORIDE 0.9% 100 ML IV SCH (14:43)
[2020-11-19] MEDS: ENOXAPARIN 40 MG/0.4 ML SYRINGE SUBCUT SCH (22:35)
[2020-11-20] MEDS: methylPREDNISolone SOD SUC 40 MG/1 ML VIAL IV SCH ×4 (03:35→20:35)
[2020-11-20] MEDS: HALOPERIDOL 5 MG/ML AMP IM PRN (04:45)
[2020-11-20 05:24] LABS: Basophils # 0.1 10*3/uL (0.0-0.2); Basophils % 0.2 % (0.0-0.8); Hematocrit 47.3 VOL% (42.0-52.0); Hemoglobin 15.3 GM/DL (14.0-18.0); Immature Granulocytes % 3.6 %; Lymphocytes # 0.6 10*3/uL (1.4-4.0); Lymphocytes % 2.8 % (21.2-54.2); Mean Corpuscular HGB Conc 32.3 GM/DL (32-36); Mean Corpuscular Volume 105.1 FL (87-102); Mean Platelet Volume 12.2 FL (9.6-12.0); Monocytes % 1.7 % (1.7-12.7); Neutrophils % 91.7 % (38.7-73.9); Platelet Count 351 T/CUMM (130-400); Red Cell Distribution Width 13.2 % (9.3-17.3); White Blood Count 22.2 T/CUMM (4-12)
[2020-11-20 05:34] LABS: Lymphocytes 3 % (20-55); Nucleated Red Blood Cells 1 (0-5); Platelet Estimate Adequate; Segmented Neutrophils 97 % (50-85); Total Cells Counted 100
[2020-11-20 05:43] LABS: Calcium 8.9 MG/DL (8.5-10.1); Osmolality,Calculated 281.4 MOS/KG (273-304); Potassium 5.2 MMOL/L (3.5-5.1)
[2020-11-20 05:48] LABS: Allen Test Positive; Pt O2 Delivery Device BIPAP
[2020-11-20 05:50] LABS: ABG Base Excess -1.9 MMOL/L (-2.5-2.5); ABG Oxygen Saturation 94.8 % (95-100); ABG PCO2 39.9 MM HG (35-48); ABG PH 7.379 (7.35-7.45); ABG PO2 77.2 MM HG (80-95); ABG TCO2 24.2 MMOL/L (23-27)
[2020-11-20] MEDS ORDERED: ZIPRASIDONE 20 MG/1 ML VIAL IM ONE (05:56)
[2020-11-20] MEDS: ZINC OXIDE PASTE 113 GM TUBE TOP SCH ×2 (09:20→20:35)
[2020-11-20] MEDS: FUROSEMIDE 40 MG/4 ML VIAL IV SCH (09:42)
[2020-11-20] MEDS: cefTRIAXone 1,000 MG in SODIUM CHLORIDE 0.9% 100 ML IV SCH (10:15)
[2020-11-20] MEDS: PANTOPRAZOLE 40 MG TABLET PO SCH (13:44)
[2020-11-20] MEDS: BENZONATATE 100 MG CAPSULE PO SCH ×3 (13:44→20:49)
[2020-11-20] MEDS: LEVOFLOXACIN 500 MG TABLET PO SCH (13:44)
[2020-11-20] MEDS: ASCORBIC ACID 500 MG TABLET PO SCH ×2 (13:45→20:50)
[2020-11-20] MEDS: CHOLECALCIFEROL 1,000 UNIT TABLET PO SCH (13:45)
[2020-11-20] MEDS: ALPRAZolam 0.25 MG TABLET PO SCH ×3 (13:46→20:50)
[2020-11-20] MEDS: ZINC GLUCONATE 50 MG TABLET PO SCH (13:52)
[2020-11-20] MEDS: CETIRIZINE 10 MG TABLET PO SCH (13:52)
[2020-11-20] MEDS: ENOXAPARIN 40 MG/0.4 ML SYRINGE SUBCUT SCH (20:35)
[2020-11-20] MEDS ORDERED: ZIPRASIDONE 20 MG/1 ML VIAL IM STA (21:26)
[2020-11-20] MEDS ORDERED: LORazepam 2 MG/1 ML VIAL IV STA (21:39)
[2020-11-21] MEDS: methylPREDNISolone SOD SUC 40 MG/1 ML VIAL IV SCH ×4 (04:45→20:57)
[2020-11-21 06:11] LABS: Basophils # 0.2 10*3/uL (0.0-0.2); Basophils % 0.6 % (0.0-0.8); Hematocrit 47.3 VOL% (42.0-52.0); Hemoglobin 15.3 GM/DL (14.0-18.0); Immature Granulocytes % 4.4 %; Immature Granulocytes Absolute 1.27 #; Lymphocytes # 0.7 10*3/uL (1.4-4.0); Lymphocytes % 2.5 % (21.2-54.2); Mean Corpuscular HGB Conc 32.3 GM/DL (32-36); Mean Corpuscular Volume 102.2 FL (87-102); Mean Platelet Volume 11.4 FL (9.6-12.0); Monocytes % 1.3 % (1.7-12.7); NRBC # 0.02 10*3/uL; Neutrophils % 91.2 % (38.7-73.9); Platelet Count 443 T/CUMM (130-400); Red Blood Count 4.63 MC/CUMM (3.8-5.5); Red Cell Distribution Width 13.2 % (9.3-17.3); White Blood Count 28.6 T/CUMM (4-12)
[2020-11-21 06:32] LABS: Osmolality,Calculated 299.7 MOS/KG (273-304); Potassium 4.9 MMOL/L (3.5-5.1)
[2020-11-21 06:50] LABS: Band Neutrophils 3 % (0-10); Hypochromasia 1+; Lymphocytes 1 % (20-55); Microcytosis Slight; Platelet Estimate Adequate; Segmented Neutrophils 95 % (50-85); Total Cells Counted 100
[2020-11-21] MEDS: BENZONATATE 100 MG CAPSULE PO SCH ×3 (08:55→21:12)
[2020-11-21] MEDS: PANTOPRAZOLE 40 MG TABLET PO SCH (08:55)
[2020-11-21] MEDS: ASCORBIC ACID 500 MG TABLET PO SCH ×2 (08:55→21:12)
[2020-11-21] MEDS: LEVOFLOXACIN 500 MG TABLET PO SCH (08:55)
[2020-11-21] MEDS: ZINC GLUCONATE 50 MG TABLET PO SCH (08:56)
[2020-11-21] MEDS: ALPRAZolam 0.25 MG TABLET PO SCH ×3 (08:56→21:12)
[2020-11-21] MEDS: CHOLECALCIFEROL 1,000 UNIT TABLET PO SCH (08:56)
[2020-11-21] MEDS: CETIRIZINE 10 MG TABLET PO SCH (08:56)
[2020-11-21] MEDS: FUROSEMIDE 40 MG/4 ML VIAL IV SCH (09:01)
[2020-11-21] MEDS: cefTRIAXone 1,000 MG in SODIUM CHLORIDE 0.9% 100 ML IV SCH (09:01)
[2020-11-21] MEDS: ZINC OXIDE PASTE 113 GM TUBE TOP SCH ×2 (09:16→20:55)
[2020-11-21] MEDS: LORazepam 2 MG/1 ML VIAL IV PRN ×2 (12:13→18:15)
[2020-11-21] MEDS ORDERED: ENOXAPARIN 40 MG/0.4 ML SYRINGE SUBCUT ONE (15:36)
[2020-11-21] MEDS: METOPROLOL TARTRATE 5 MG/5 ML VIAL IV SCH ×3 (17:12→23:40)
[2020-11-21] MEDS ORDERED: LORazepam 2 MG/1 ML VIAL IV STA (20:38)
[2020-11-21] MEDS: ENOXAPARIN 100 MG/ML SYRINGE SUBCUT SCH (21:00)
[2020-11-22] MEDS: methylPREDNISolone SOD SUC 40 MG/1 ML VIAL IV SCH ×3 (04:02→17:09)
[2020-11-22 05:55] LABS: Basophils # 0.3 10*3/uL (0.0-0.2); Basophils % 0.8 % (0.0-0.8); Hematocrit 48.4 VOL% (42.0-52.0); Hemoglobin 15.6 GM/DL (14.0-18.0); Immature Granulocytes % 4.5 %; Immature Granulocytes Absolute 1.64 #; Lymphocytes % 2.7 % (21.2-54.2); Mean Corpuscular HGB Conc 32.2 GM/DL (32-36); Mean Corpuscular Volume 103.6 FL (87-102); Mean Platelet Volume 11.6 FL (9.6-12.0); Monocytes % 1.6 % (1.7-12.7); NRBC # 0.03 10*3/uL; Neutrophils % 90.4 % (38.7-73.9); Platelet Count 512 T/CUMM (130-400); Red Blood Count 4.67 MC/CUMM (3.8-5.5); Red Cell Distribution Width 13.4 % (9.3-17.3); White Blood Count 36.5 T/CUMM (4-12)
[2020-11-22 06:27] LABS: Calcium 9.7 MG/DL (8.5-10.1); Osmolality,Calculated 316.4 MOS/KG (273-304); Potassium 4.8 MMOL/L (3.5-5.1)
[2020-11-22] MEDS: METOPROLOL TARTRATE 5 MG/5 ML VIAL IV SCH ×3 (06:30→17:10)
[2020-11-22 06:32] LABS: Band Neutrophils 2 % (0-10); Lymphocytes 2 % (20-55); Platelet Estimate Increased; Segmented Neutrophils 96 % (50-85); Total Cells Counted 100
[2020-11-22] MEDS ORDERED: GLUCAGON 1 MG VIAL IM PRN (09:07)
[2020-11-22] MEDS ORDERED: DEXTROSE 50% 25 GM/50 ML VIAL IV PRN (09:07)
[2020-11-22] MEDS: LEVOFLOXACIN 500 MG TABLET PO SCH (10:27)
[2020-11-22] MEDS: ASCORBIC ACID 500 MG TABLET PO SCH (10:28)
[2020-11-22] MEDS: CHOLECALCIFEROL 1,000 UNIT TABLET PO SCH (10:28)
[2020-11-22] MEDS: BENZONATATE 100 MG CAPSULE PO SCH ×2 (10:28→16:10)
[2020-11-22] MEDS: PANTOPRAZOLE 40 MG TABLET PO SCH (10:28)
[2020-11-22] MEDS: CETIRIZINE 10 MG TABLET PO SCH (10:29)
[2020-11-22] MEDS: ALPRAZolam 0.25 MG TABLET PO SCH ×2 (10:29→16:10)
[2020-11-22] MEDS: ZINC GLUCONATE 50 MG TABLET PO SCH (10:29)
[2020-11-22] MEDS: cefTRIAXone 1,000 MG in SODIUM CHLORIDE 0.9% 100 ML IV SCH (12:09)
[2020-11-22] MEDS: FUROSEMIDE 40 MG/4 ML VIAL IV SCH (12:10)
[2020-11-22] MEDS: ENOXAPARIN 100 MG/ML SYRINGE SUBCUT SCH (12:11)
[2020-11-22] MEDS: ZINC OXIDE PASTE 113 GM TUBE TOP SCH (12:12)
[2020-11-22] MEDS ORDERED: INSULIN GLARGINE 100 UNIT/ML SUBCUT SCH (13:00)
[2020-11-22] MEDS ORDERED: FUROSEMIDE 40 MG/4 ML VIAL IV ONE (13:00)
[2020-11-22] MEDS: INSULIN LISPRO 100 UNIT/ML SUBCUT SCH ×2 (13:01→17:10)
[2020-11-22 19:08] VITALS: BP 117/56
== END 2020-11-22 22:02 | disposition expired | DRG 177 ==
LOC: N.ED 07:59 → SUATTDRO 10:22 → N.EDINP 10:22 → N.ICU 11-16 07:40 → N.2E 11-18 13:07
PROVIDERS: ADMIT Internal Medicine; ATTEND Internal Medicine